=== PATIENT | female | born 1960 ===

== ENCOUNTER 2017-08-28 14:54 | Emergency (ER) | payer MEDICAID ==
[2017-08-28 15:02] VITALS: BMI 30.2
[2017-08-28 15:05] VITALS: BP 169/61; TEMP 98.9; O2SAT 97
--- NOTE | 2017-08-28 15:12 | C.PDOC ---
History Of Present Illness 57 year old female presents to the ER for evaluation of a head injury. Patient reports that she was reaching for something and a can of beans fell and struck her head. Patient states that she sustained a laceration on her forehead. Patient denies any loss of consciousness, dizziness, and vomiting. Patient reports that she did not take any medications for the pain. Time Seen by Provider: 08/28/17 15:06 Chief Complaint (Nursing): Abnormal Skin Integrity History Per: Patient History/Exam Limitations: no limitations Onset/Duration Of Symptoms: Hrs Current Symptoms Are (Timing): Still Present Severity: Moderate Past Medical History Reviewed: Historical Data, Nursing Documentation, Vital Signs Vital Signs: Last Vital Signs Temp 98.9 F 08/28/17 14:55 Pulse 73 08/28/17 15:45 Resp 18 08/28/17 15:45 BP 169/61 H 08/28/17 14:55 Pulse Ox 97 08/28/17 17:04 - Medical History PMH: Asthma, Bronchitis Surgical History: No Surg Hx Family History: States: No Known Family Hx - Social History Hx Tobacco Use: No Hx Alcohol Use: No Hx Substance Use: No - Immunization History Hx Tetanus Toxoid Vaccination: No Hx Influenza Vaccination: No Hx Pneumococcal Vaccination: No Review Of Systems Except As Marked, All Systems Reviewed And Found Negative. Gastrointestinal: Negative for: Nausea, Vomiting, Diarrhea Skin: Positive for: Other (laceration on forehead) Neurological: Negative for: Weakness, Numbness, Dizziness Physical Exam - Physical Exam Appears: Non-toxic, No Acute Distress Skin: Normal Color, Warm Head: Normacephalic, Laceration (2 cm curved superficial laceration to the mid forehead, no bleeding) Eye(s): bilateral: Normal Inspection, PERRL, EOMI Ear(s): Bilateral: Normal Nose: Normal Oral Mucosa: Moist Neck: Normal ROM, Supple Chest: Symmetrical Extremity: Bilateral: Atraumatic, Normal Color And Temperature, Normal ROM Neurological/Psych: Oriented x3, Normal Speech, Normal Cranial Nerves, No Cerebellar Signs, Normal Motor, Normal Sensation Gait: Steady ED Course And Treatment O2 Sat by Pulse Oximetry: 97 (RA) Pulse Ox Interpretation: Normal Procedure: Wound Repair - Time Out Time Out: Side verified, Site verified, Patient ID confirmed - Performed by Performed by: Mid-level Provider - Indications Indication(s):: Laceration - Location Location:: Face (forehead) Dimensions Length cm: 2 cm Depth:: Epidermis - Debris Debris:: None - Complexity Complexity:: Simple (one layer) - Wound repair method Álvaro:: Tissue glue (Dermabond) - Patient tolerated procedure Patient Tolerated Procedure:: Well Medical Decision Making Medical Decision Making: Wound irrigated and cleansed. Dermabond applied for wound closure. Patient tolerated well. Patient instructed on wound care and concerning symptoms for return to ED Disposition Counseled Patient/Family Regarding: Diagnosis, Need For Followup - Disposition Referrals: [facility] [Outside] [facility] [Outside] Disposition: HOME/ ROUTINE Disposition Time: 15:33 Condition: STABLE Additional Instructions: Skin glue was used to close your wound, do not apply ointment to area as it may dissolve glue. Glue patch will gradually fall off in few days. return to the ER if any alteration in behavior or mental status, severe headache, nausea, persistent vomiting, or loss of consciousness occurs Instructions: Skin Adhesive Care (ED) Forms: [employer] (Korean) - POA Present On Arrival: None - Clinical Impression Clinical Impression: Laceration of forehead - PA / INTERNET RESEARCHER / Resident Statement MD/DO has reviewed & agrees with the documentation as recorded. - Scribe Statement The provider has reviewed the documentation as recorded by the Scribe Meme Vega All medical record entries made by the Scribe were at my direction and personally dictated by me. I have reviewed the chart and agree that the record accurately reflects my personal performance of the history, physical exam, medical decision making, and the department course for this patient. I have also personally directed, reviewed, and agree with the discharge instructions and disposition.
[2017-08-28 15:46] VITALS: PULSE 73; RESP 18
== END 2017-08-28 15:46 | disposition home or self-care (01) ==
LOC: C.ER 14:54
DX: S01.81XA Laceration without foreign body of other part of head, initial encounter (principal); W22.8XXA Striking against or struck by other objects, initial encounter